=== PATIENT | female | born 1960 | race Hispanic/Latino ===

== ENCOUNTER 2017-03-08 15:32 | Emergency (ER) | payer BC ==
[2017-03-08 15:44] VITALS: BMI 24.3
[2017-03-08 15:49] VITALS: PULSE 82; TEMP 98.4; O2SAT 97
[2017-03-08 16:16] VITALS: BP 172/77
--- NOTE | 2017-03-08 16:18 | C.PDOC ---
History Of Present Illness 56 yo female with no PMHx, presents to the ED c/o right sided chest pain x 1 day. State today around 1pm she felt a uncomfortable feeling in her chest that then worsening in pain radiating down her right arm. She started having a cold flash. It resolved and then 40min later it happened again. Currently she is having pain. No shortness of breath. No abdominal pain, nausea or vomiting. No recent travel, no recent prolonged immobilization, no recent surgery. No h/o PE or DVT. No fever or cough. Aspiring 162mg taken today. PMD: Dr. Adams ALVA Risk Score for UA/NSTEMI - ALVA Risk Score Age > 64: NO 3 or more CAD Risk Factors: NO Known CAD (Stenosis greater than 50%): NO Aspirin use in past 7 days: YES Severe Angina: NO EKG ST changes greater than 0.5mm: NO Positive Cardiac Marker: NO ALVA Score: 1 % risk at 14 days of: all cause mortality, new or recurrent ND, or severe recurrent ischemia requiring urgen revascularization: 5% Wells Criteria for PE - Wells Criteria for Pulmonary Embolism Clinical Signs and Symptoms of DVT: No P.E is #1 Diagnosis, or Equally Likely: No Heart Rate >100: No Immobilization at least 3 days;Surgery previous 4 weeks: No Previous, objectively diagnosed PE or DVT: No Hemoptysis: No Malignancy w/treatment within 6 months, or palliative: No Total Score: 0 Time Seen by Provider: 03/08/17 15:49 Chief Complaint (Nursing): Chest Pain History Per: Patient Past Medical History Reviewed: Historical Data Vital Signs: Last Vital Signs Temp 98.4 F 03/08/17 15:48 Pulse 82 03/08/17 15:48 Resp 20 03/08/17 15:48 BP 172/77 H 03/08/17 16:14 Pulse Ox 97 03/08/17 17:47 - Medical History PMH: Bronchitis Surgical History: Tonsillectomy Family History: States: No Known Family Hx - Social History Hx Alcohol Use: Yes Hx Substance Use: Yes - Immunization History Hx Tetanus Toxoid Vaccination: No Hx Influenza Vaccination: No Hx Pneumococcal Vaccination: No Review Of Systems Except As Marked, All Systems Reviewed And Found Negative. Cardiovascular: Positive for: Chest Pain. Negative for: Palpitations, Orthopnea , Edema, Light Headedness Respiratory: Negative for: Cough, Shortness of Breath Gastrointestinal: Negative for: Nausea, Vomiting, Abdominal Pain Musculoskeletal: Positive for: Arm Pain. Negative for: Neck Pain Neurological: Negative for: Weakness Psych: Negative for: Anxiety Physical Exam - Physical Exam Appears: Well, No Acute Distress Skin: Normal Color, Warm, Dry Eye(s): bilateral: Normal Inspection, PERRL, EOMI Nose: Normal Throat: Normal Neck: Normal Chest: Symmetrical, No Deformity, Tenderness (tenderness to right chest wall) Cardiovascular: Rhythm Regular Respiratory: Normal Breath Sounds Gastrointestinal/Abdominal: Normal Exam Back: Normal Inspection Extremity: Normal ROM Pulses: Right Carotid: Normal, Left Radial: Normal Neurological/Psych: Oriented x3, Normal Speech, Normal Cranial Nerves, Normal Motor, Normal Sensation ED Course And Treatment - Laboratory Results Result Diagrams: 03/08/17 16:32 03/08/17 16:32 ECG: Interpreted By Me ECG Rhythm: Sinus Rhythm (at 79 bpm; no ST elevations, nl intervals) O2 Sat by Pulse Oximetry: 97 - Radiology CXR: Interpreted by Me CXR Interpretation: Yes: No Acute Disease Medical Decision Making Medical Decision Makin yo female with chest pain r/o ACS vs MSK vs Anxiety -- Labs -- CXR, EKG -- Aspirin 162mg PO taken at home -- Morphine 2mg IV ED OBSERVATION Date of observation admission: 03/08/17 Time of observation admission: 16:09 - Observation admission statement Patient is being placed in observation because:: Chest Pain for reevaluation - Goals of Observation Goals of observation are:: Reassess for chest pain. Need for second troponin. - Progress Note Progress Note: 03/08/17 17:31 Patient's pain has improved. Troponin negative x 1. EKG nl. Will repeat 2nd troponin and EKG at 7:30pm. 03/08/17 17:48 Patient does not want to stay in the hospital for further evaluation or tests. She needs to get home to take care of someone. She understands the risks vs benefits as I have explained them to her. She was given time to think it over. She still does not want to stay in the hospital. She feels better and will follow up with her PMD Dr. Adams. AMA form explained and signed by patient. Co -sign by RN. Disposition Counseled Patient/Family Regarding: Studies Performed, Diagnosis, Need For Followup - Disposition Disposition: AGAINST MEDICAL ADVICE Disposition Time: 17:44 Condition: GOOD - POA Present On Arrival: None - Clinical Impression Clinical Impression: Chest pain
--- NOTE | 2017-03-08 16:31 | RAD ---
PROCEDURE: CHEST RADIOGRAPH, 1 VIEW HISTORY: Chest pain COMPARISON: None FINDINGS: LUNGS: The lungs are well inflated and clear. PLEURA: No pneumothorax or pleural fluid seen. CARDIOVASCULAR: Normal. OSSEOUS STRUCTURES: No significant abnormalities. VISUALIZED UPPER ABDOMEN: Normal. OTHER FINDINGS: None. IMPRESSION: No active pulmonary disease.
[2017-03-08 16:38] LABS: BASO # 0.1 K/uL (0.0-0.2); BASO % 0.7 % (0.0-2.0); EOS # 0.1 K/uL (0.0-0.7); EOS % 1.1 % (0.0-4.0); HEMOGLOBIN 13.5 g/dL (11.0-16.0); LYMPH # 1.2 K/uL (1.0-4.3); LYMPH % 14.9 % (20.0-40.0); MEAN CELL VOLUME 88.7 fL (81.0-99.0); MEAN CORPUSCULAR HEMOGLOBIN 30.7 pg (27.0-31.0); MEAN CORPUSCULAR HGB CONC 34.6 g/dL (33.0-37.0); MEAN PLATELET VOLUME 6.7 fL (7.2-11.7); MONO # 0.7 K/uL (0.0-0.8); MONO % 8.5 % (0.0-10.0); NEUT # 5.9 K/uL (1.8-7.0); NEUT % 74.8 % (50.0-75.0); RBC 4.41 Mil/uL (3.80-5.20); RED CELL DISTRIBUTION WIDTH 12.6 % (11.5-14.5); WHITE BLOOD COUNT 7.9 K/uL (4.8-10.8)
[2017-03-08 16:44] LABS: ALBUMIN 4.2 g/dL (3.5-5.0)
[2017-03-08 16:46] LABS: GFR AFRICAN-AMERICAN > 60; GFR NON-AFRICAN AMERICAN > 60; INR 0.9; PARTIAL THROMBOPLASTIN TIME 28 SECONDS (21-34); PROTHROMBIN TIME 10.1 SECONDS (9.7-12.2)
[2017-03-08 16:47] LABS: ALB/GLOB RATIO 1.5 (1.0-2.1); ALT/SGPT 43 U/L (9-52); AST/SGOT 52 U/L (14-36); BLOOD UREA NITROGEN 21 mg/dL (7-17); CALCIUM 9.1 mg/dl (8.6-10.4)
[2017-03-08 16:48] LABS: HDL CHOLESTEROL 107 mg/dL (30-70); LIPASE 51 U/L (23-300)
[2017-03-08 16:50] LABS: D DIMER < 200 ng/mlDDU (0-243)
[2017-03-08 17:01] LABS: LDL CHOLESTEROL 70 mg/dL (0-129)
[2017-03-08 18:02] VITALS: RESP 18
--- NOTE | 2017-03-09 12:15 | CARD ---
APPROVED REPORT EKG Measurement Heart [id number] <Conclusion> Normal sinus rhythm Normal ECG
== END 2017-03-08 17:59 | disposition left against medical advice (07) ==
LOC: C.ER 15:32 → UNDOADMOB 16:09 → C.9OBSV 16:09 → C.ER 17:59
DX: R07.9 Chest pain, unspecified (principal)
CPT/HCPCS: 71010; 80053; 80061; 83690; 84443; 84484; 85025; 85378; 85610; 85730; 93005; 96374; 99284; J2270

== ENCOUNTER 2018-07-16 04:09 | Emergency (ER) | payer BC ==
[2018-07-16 04:09] VITALS: BMI 25.0
[2018-07-16 04:38] VITALS: O2SAT 96
--- NOTE | 2018-07-16 04:43 | C.PDOC ---
History Of Present Illness 57 year old female patient presents to the emergency room complaining of left wrist pain. Patient reports she fell and landed on her left wrist x2 days ago. Patient notes the swelling progressively got worse and she did not take any pain medications. Patient denies loss of consciousness, elbow pain and any head injuries. Time Seen by Provider: 07/16/18 04:29 Chief Complaint (Nursing): Upper Extremity Problem/Injury History Per: Patient History/Exam Limitations: no limitations Onset/Duration Of Symptoms: Days (x2) Current Symptoms Are (Timing): Still Present Past Medical History Reviewed: Historical Data, Nursing Documentation, Vital Signs Vital Signs: Last Vital Signs Temp 98.8 F 07/16/18 04:22 Pulse 106 H 07/16/18 04:22 Resp 20 07/16/18 04:22 BP 171/92 H 07/16/18 04:22 Pulse Ox 96 07/16/18 04:22 - Medical History PMH: Bronchitis Surgical History: Tonsillectomy Family History: States: No Known Family Hx - Social History Hx Alcohol Use: Yes (SOCIALLY) Hx Substance Use: Yes (MARIJUANA EVERY NIGHT) - Immunization History Hx Tetanus Toxoid Vaccination: No Hx Influenza Vaccination: No Hx Pneumococcal Vaccination: No Review Of Systems Constitutional: Negative for: Other (head injuries ) Musculoskeletal: Positive for: Other (left wrist pain; no elbow pain) Neurological: Negative for: Other (loss of consciousness) Physical Exam - Physical Exam Appears: Well, Non-toxic, No Acute Distress Skin: Warm, Dry, No Rash Head: Atraumatic, Normacephalic Eye(s): bilateral: Normal Inspection Oral Mucosa: Moist Neck: Normal ROM Extremity: Tenderness (left radial wrist ), No Deformity, Swelling (left radial wrist ) Pulses: Left Radial: Normal Neurological/Psych: Oriented x3, Normal Speech, Normal Cognition, Normal Sensation ED Course And Treatment O2 Sat by Pulse Oximetry: 96 (RA) Pulse Ox Interpretation: Normal Medical Decision Making Medical Decision Making: Impression: slip and fall on left wrist Plans: -- left wrist X-ray Xray showed no acute fracture. Velcro volar splint applied by CP. Patient instructed to take pain medicine as needed Disposition Counseled Patient/Family Regarding: Diagnosis, Need For Followup, Rx Given - Disposition Referrals: Loida Branch MD [Staff Provider] - Disposition: HOME/ ROUTINE Disposition Time: 05:17 Condition: STABLE Additional Instructions: Your x-ray was normal, no fracture. Please apply ice to area 15 minutes three times a day. Take Motrin as needed for pain every 6 hours, with food to not upset stomach. Follow up with orthopedic if pain persists over one week. Prescriptions: Ibuprofen [Motrin] 600 mg PO Q8 #30 tab Instructions: Wrist Sprain (DC) Forms: [employer] (Bengali) - POA Present On Arrival: Falls Or Trauma - Clinical Impression Clinical Impression: Wrist sprain - PA / ASSISTANT DRAFTER / Resident Statement / has reviewed & agrees with the documentation as recorded. - Scribe Statement The provider has reviewed the documentation as recorded by the Sophia Barry Do All medical record entries made by the Scribe were at my direction and personally dictated by me. I have reviewed the chart and agree that the record accurately reflects my personal performance of the history, physical exam, medical decision making, and the department course for this patient. I have also personally directed, reviewed, and agree with the discharge instructions and disposition.
[2018-07-16 05:34] VITALS: BP 162/87; PULSE 98; RESP 16; TEMP 98.4
--- NOTE | 2018-07-16 08:26 | RAD ---
Date of service: 07/16/2018 PROCEDURE: Left Wrist Radiographs. HISTORY: pain s.p fall COMPARISON: None. FINDINGS: BONES: Normal. No fracture. JOINTS: Normal. No dislocation. SOFT TISSUES: Normal. OTHER FINDINGS: None. IMPRESSION: Normal left wrist radiographs.
== END 2018-07-16 05:34 | disposition home or self-care (01) ==
LOC: C.ER 04:09
DX: S63.502A Unspecified sprain of left wrist, initial encounter (principal); W01.0XXA Fall on same level from slipping, tripping and stumbling without subsequent striking against object, initial encounter